=== PATIENT | female | born 1995 | race Caucasian/White ===

== ENCOUNTER 2020-10-14 19:59 | Emergency (ER) | payer BC, OTHER, SELFPAY ==
[2020-10-14 20:03] VITALS: BP 132/88; PULSE 62; RESP 17; TEMP 36.6; O2SAT 99; BMI 22.8
--- NOTE | 2020-10-14 20:31 | PC.NURSE ---
Denies any abnormal vaginal spotting or bleeding. Prone to UTI, had a bad one last month I think hurt my kidney did not take abx for that one. Patient usually treats them at home taking cranberry supplements when she feels one coming on. Denies fever, had generalized body aches prior to arrival. Things have seemed to calm down a little
[2020-10-14 21:05] LABS: Amorphous Sediment Urine 1+; Bacteria Urine Moderate (10-30); Mucus Urine 1+ (Negative); RBC Urine 1-5/HPF (0-5/HPF); Squamous Epithelial Cell Urine 1-5 /HPF (0-5/HPF); WBC Urine 10-30/HPF (0-5/HPF)
--- NOTE | 2020-10-14 21:07 | ED.GENADULT ---
HPI - General Adult General Chief complaint: Urogenital-Female Stated complaint: REALLY BAD UTI Time Seen by Provider: 10/14/20 20:42 Source: patient Mode of arrival: Ambulatory Limitations: no limitations History of Present Illness HPI narrative: Patient is a 25-year-old female was here for evaluation of approximately 12-24 hours of dysuria frequency and painful urination. She states that she has had a urinary tract infection in the past. Most the time she can treat them with [id number] medications but she tried that at home prior to arrival without any improvement. She does not remember the antibiotic that she has been on in the past. Denies any abdominal pain. No fevers. No nausea vomiting. No bowel changes. Related Data Previous Rx's Medication Instructions Recorded cephalexin 500 mg capsule 500 mg PO BID 3 Days #6 cap 10/14/20 Allergies Allergy/AdvReac Type Severity Reaction Status Date / Time No Known Drug Allergies Allergy Verified 08/01/20 08:28 Review of Systems Constitutional Constitutional: Denies fever(s) Cardiovascular Cardiovascular: Reports system reviewed and no additional complaints, except as documented Respiratory Respiratory: Reports system reviewed and no additional complaints, except as documented Gastrointestinal Gastrointestinal: Reports system reviewed and no additional complaints, except as documented Genitourinary Genitourinary: Reports as per HPI Musculoskeletal Musculoskeletal: Reports system reviewed and no additional complaints, except as documented Integumentary/Breasts Skin/Breast: Reports system reviewed and no additional complaints, except as documented Hematologic/Lymphatic On Anticoagulants: No Patient History Medical History IUD (intrauterine device) in place Social History Smoking Status: Never smoker Smoking Status: Never smoker alcohol intake frequency: 0-2 drinks per day Substance Use Type: does not use Exam Initial Vital Signs Initial Vital Signs: Vital Signs Temperature 97.8 F 10/14/20 20:03 Pulse Rate 62 10/14/20 20:03 Respiratory Rate 17 10/14/20 20:03 Blood Pressure 132/88 10/14/20 20:03 Pulse Oximetry 99 10/14/20 20:03 Const General: cooperative, comfortable and well developed HENMT Head: normal to inspection and normocephalic Resp Effort & Inspection: normal respiratory effort Cardio Rate: regular rate GI Inspection: normal to inspection Skin General: no rashes or lesions noted Neuro General: patient alert, patient awake and moves all extremities Extrem General: normal to inspection Psych Appearance: grossly normal and well kempt Course Orders Ordered: ED Orders 10/14/20 20:52 Urine Culture Stat Urine Microscopic Stat Discontinued Medications Cephalexin HCl (Cephalexin 250 Mg Capsule) 500 mg PO NOW ONE Stop: 10/14/20 21:08 Last Admin: 10/14/20 21:19 Dose: 500 mg Documented by: MILY Vital Signs Vital signs: Vital Signs - 8 hr 10/14/20 20:03 Temperature 97.8 F Pulse Rate 62 Respiratory Rate 17 Blood Pressure 132/88 Pulse Oximetry 99 Medical Decision Making Lab Data Labs: Lab Results 10/14/20 Range/Units 20:52 Urine RBC 1-5/hpf (0-5/HPF) Urine WBC 10-30/hpf H (0-5/HPF) Ur Squamous Epith Cells 1-5 /hpf (0-5/HPF) Amorphous Sediment 1+ Urine Bacteria Moderate (10-30) H (None) Urine Mucus 1+ H (Negative) Ur Culture Indicated? Culture not indicate Point of Care Testing Test Results Negative Urine Dip Bedside Urine Glucose Negative Bedside Urine Bilirubin - Negative Bedside Urine Ketone - Negative Urine Specific [place] 1.015 Bedside Urine Occult Blood +++ Bedside Urine pH 6.0 Bedside Urine Protein - Negative Bedside Urine Urobilinogen - Negative Bedside Urine Nitrite - Negative Bedside Urine Leukocytes ++ 125 Esterase Point of care testing: Point of Care Testing Test Results Negative Urine Dip Bedside Urine Glucose Negative Bedside Urine Bilirubin - Negative Bedside Urine Ketone - Negative Urine Specific [place] 1.015 Bedside Urine Occult Blood +++ Bedside Urine pH 6.0 Bedside Urine Protein - Negative Bedside Urine Urobilinogen - Negative Bedside Urine Nitrite - Negative Bedside Urine Leukocytes ++ 125 Esterase MDM Narrative Medical decision making narrative: Patient's history and physical and urinalysis today is consistent with a urinary tract infection. A urine culture was obtained and was pending at the time of discharge. Patient was informed of this. She was told that we would contact her if we need to change any antibiotics. Will start her on antibiotics. She is given a 1st dose here in the emergency department. Prescription was sent to the pharmacy of her choice for the remainder the course. Low suspicion for pyelonephritis. She is given return precautions and follow-up instructions. She expressed understanding and agreement. Discharge Plan Departure Patient Disposition: Home Clinical Impression: Urinary tract infection Instructions: DI for Urinary Tract Infection (UTI) Activity Restrictions/Additional Instructions: A urine culture was pending at the time of discharge. If we need to change any antibiotics we will contact you to let you know. You were given your 1st dose here in the emergency department of the antibiotic. [facility] Please take it as directed. Return to the emergency department for any new or worsening symptoms Prescriptions: New cephalexin 500 mg capsule 500 mg PO BID 3 Days Qty: 6 RF: 0 Referrals: Karlos Rothman ARNP [Primary Care Provider] -
[2020-10-14] MEDS: cephALEXin 250 MG CAPSULE 500 MG PO (21:19)
== END 2020-10-14 21:23 | disposition home or self-care (01) ==
PROVIDERS: Emergency Provider Emergency Medicine; PCP Registered Nurse
DX: N39.0 Urinary tract infection, site not specified (principal)
CPT/HCPCS: 81003; 81015; 81025; 87086; 99283

== ENCOUNTER → 2021-10-14 12:08 | Outpatient (CLI) | payer OTHER, SELFPAY ==
[2021-10-14 12:31] LABS: COVID19 -Nasal RAPID Negative (Negative)
== END ==
PROVIDERS: PCP Registered Nurse; Visit Provider Physician Assistant
DX: Z20.822 Contact with and (suspected) exposure to COVID-19 (principal); J31.2 Chronic pharyngitis
CPT/HCPCS: 87070; 87147; 87635